=== PATIENT | female | born 1985 | race Caucasian/White ===

== ENCOUNTER 2021-09-17 16:59 | Emergency (ER) | payer OTHER, SELFPAY ==
--- NOTE | 2021-09-17 16:54 | ECG_ITS ---
APPROVED REPORT Exam: Resting ECG HR:72 bpm ECG Measurements Heart Rate 72 AXES ID 180 P 23 QRSd 97 QRS 72 QT 398 T 78 QTc 422 Conclusion SINUS RHYTHM WITH OCCASIONAL VENTRICULAR PREMATURE COMPLEXES BORDERLINE ECG UNCONFIRMED REPORT Electronically signed by : Sterling Heck MD 09/18/2021 15:36:29
[2021-09-17 16:57] VITALS: BP 125/67; PULSE 68; RESP 16; TEMP 36.6; O2SAT 100; BMI 28.3
--- NOTE | 2021-09-17 17:19 | HMH.EDGENADL ---
ED Disposition Clinical Impression: Accidental overdose Qualifiers: Encounter type: initial encounter Qualified Code(s): T50.901A - Poisoning by unspecified drugs, medicaments and biological substances, accidental (unintentional), initial encounter Disposition: Home, Self-Care Condition on Discharge: Good Instructions: DI for Drug Overdose in Adults Time of Disposition: 18:11 - Critical Care Critical Care Time: No Attestation: On , the high probability of a clinically significant, sudden or life threatening deterioration of the following system(s) required my full and direct attention, intervention and personal management. The time I documented below is in addition to time spent performing reported procedures but includes the following listed in this critical care notation. Medical Decision Making - Medical Records Medical records reviewed: Yes: I reviewed the patient's medical records. - Luis Eduardo Inquiry Pt receiving controlled substance: No Vital Signs: 09/17/21 16:57 Temperature 97.8 F Temperature Source Oral Pulse Rate [Right Radial] 68 Respiratory Rate 16 Blood Pressure [Right Arm] 125/67 Blood Pressure Mean [Right Arm] 86 Blood Pressure Source [Right Arm] Automatic Cuff Blood Pressure Position [Right Arm] Sitting 02 Sat by Pulse Oximetry 100 Oxygen Delivery Method Room Air - Lab Data Lab results reviewed: Yes: I reviewed the patient's lab results. Lab Results 09/17/21 17:10: WBC 11.4 H, RBC 4.43, Hgb 14.6, Hct 43.9, MCV 98.9, MCH 32.9 H, MCHC 33.3, RDW 13.8, Plt Count 402, MPV 7.4, Neut % (Auto) 64.3, Lymph % (Auto) 25.1, [place] % (Auto) 6.0, Eos % (Auto) 2.8, Baso % (Auto) 1.8, Neut # (Auto) 7.4, Lymph # (Auto) 2.9, [place] # (Auto) 0.7, Eos # (Auto) 0.3, Baso # (Auto) 0.2 09/17/21 17:10: Sodium 141, Potassium 4.3, Chloride 105, Carbon Dioxide 29, Anion Gap 11.3, BUN 12, Creatinine 0.60, Estimated Creat Clear 153, Estimated GFR 113, Est GFR ( Amer) 137, Glucose 113 H, Calcium 9.2, Total Bilirubin 0.5, AST 31, ALT 15, Alkaline Phosphatase 86, Total Protein 8.2, Albumin 4.7, Globulin 3.5 H, Albumin/Globulin Ratio 1.3, Salicylates < 1.0 L, Acetaminophen < 10 L 09/17/21 17:10: Serum HCG, Qual Negative 09/17/21 17:10: Urine Opiates Screen Negative, Urine Methadone Screen Negative, Ur Barbituates Screen Negative, Ur Phencyclidine Scrn Negative, Ur Amphetamines Screen Negative, U Benzodiazepines Scrn Negative, Urine Cocaine Screen Positive H, U Marijuana (THC) Screen Positive H 09/17/21 17:10: Plasma/Serum Alcohol < 10 Result diagrams: 09/17/21 17:10 09/17/21 17:10 Orders (Tests/Meds): ORDERS Category Date Time Status Urinalysis and Microscopic Stat Lab 09/17/21 17:10 Received - ECG Data Tracing #1 I reviewed this ECG and interpreted as documented below: NSR @ 72 normal axis RI 180 QRS 97 QTc 422 baseline artifact limits interpretation, but no apparent significant ST/T wave changes General Adult HPI - General Stated complaint: OD Time Seen by Provider: 09/17/21 18:10 Mode of Arrival: EMS Source of Information: Patient Limitations: No Limitations - History of Present Illness HPI narrative: 36 yo/F, BIBEMS, found unresponsive at home, denies opiate use, but aroused with narcan by EMS. She does state she did a little cocaine today. Per her report, she felt dizzy and next thing she knew, there were box hinge and lock attacher and ROSI standing over her. Currently awake, alert, oriented, denies any acute complaints. No N/V, CP, SOB or other symptoms at this time. - Related Data Allergies Allergy/AdvReac Type Severity Reaction Status Date / Time peanut Allergy Verified 09/17/21 17:24 [facility] History - Hepatitis A Screen Attestation statement:: This patient has been screened for Hepatitis A risk factors. ROS Obtained: Yes All systems reviewed & no additional complaints - Constitutional Constitutional: Reports system reviewed and no additional complaints, except as docu - Eyes
[2021-09-17 17:29] LABS: Microscopic, Urine URINE MICROSCOPIC (MICROSCOPIC)
[2021-09-17 17:35] LABS: Basophils # 0.2 K/mm3 (0-0.2); Basophils % 1.8 % (0.1-2.0); Eosinophils # 0.3 K/mm3 (0.0-0.4); Eosinophils % 2.8 % (0.1-12.0); Hematocrit 43.9 % (37.0-47.0); Hemoglobin 14.6 g/dL (12.2-16.2); Lymphocytes # 2.9 K/mm3 (0.7-4.5); Lymphocytes % 25.1 % (10-50); Mean Corpuscular HGB Conc 33.3 g/dL (31.8-35.4); Mean Corpuscular Hemoglobin 32.9 pg (27.0-31.2); Mean Corpuscular Volume 98.9 fl (81-99); Mean Platelet Volume 7.4 fl (7.4-10.4); Monocytes # 0.7 K/mm3 (0.1-1.0); Neutrophils # 7.4 K/mm3 (1.8-7.8); Neutrophils % 64.3 % (37.0-80.0); Platelet Count 402 K/mm3 (142-424); Red Blood Count 4.43 M/mm3 (4.20-5.40); Red Cell Distribution Width 13.8 % (11.5-17.5); White Blood Count 11.4 K/mm3 (4.8-10.8)
[2021-09-17 17:36] LABS: Chloride 105 mmol/L (98-107)
[2021-09-17 17:37] LABS: Appearance,Urine CLEAR (Clear); Bilirubin,Urine Negative (Negative); Blood, Urine Negative (Negative); Color,Urine YELLOW (Yellow); Glucose,Urine (UA) Negative (Negative); Ketones,Urine Negative (Negative); Leukocyte Esterase,Urine Negative (Negative); Nitrate,Urine Negative (Negative); Potassium 4.3 mmoL/L (3.5-5.1); Protein,Urine Negative (Negative); Sodium 141 mmol/L (136-145); Specific Gravity, Urine 1.015 (1.005-1.030); Urobilinogen,Urine 0.2 EU/dl (0.2)
[2021-09-17 17:39] LABS: Alanine Aminotransferase 15 U/L (12-78); Anion Gap 11.3 mEq/L (5-15); Aspartate Amino Transferase 31 U/L (14-36); Blood Urea Nitrogen 12 mg/dl (7-17); Carbon Dioxide 29 mmol/L (22.0-30.0); Creatinine Clearance Estimated 153 mL/min (50-200); Estimated Glomerular Filt Rate 113 ml/min (>60); GFR (African American) 137 ML/MIN (>60)
[2021-09-17 17:40] LABS: Acetaminophen < 10 ug/ml (10-30); Albumin Level 4.7 g/dl (3.5-5.0); Albumin/Globulin Ratio 1.3 (1.1-1.8); Alkaline Phosphatase 86 U/L (38-126); Bilirubin,Total 0.5 mg/dl (0.2-1.3); Calcium 9.2 mg/dl (8.4-10.2); Ethyl Alcohol < 10 mg/dl (0-10); Globulin 3.5 g/dL (1.3-3.2); Glucose 113 mg/dl (74-100); Salicylate < 1.0 mg/dL (2.0-20.0); Total Protein,Serum 8.2 g/dl (6.3-8.2)
[2021-09-17 17:48] LABS: Amphetamine/Metha Screen,Urine Negative ng/ml (<1000); Barbiturates Screen,Urine Negative ng/ml (<200)
[2021-09-17 17:49] LABS: Benzodiazepines Screen,Urine Negative ng/ml (<200); Cannabinoid Screen,Urine Positive ng/ml (<50)
[2021-09-17 17:50] LABS: Cocaine Screen,Urine Positive ng/ml (<300); HCG Qualitative, Serum Negative (Negative)
[2021-09-17 17:51] LABS: Methadone Screen,Urine Negative ng/ml (<300); Opiate Screen,Urine Negative ng/ml (<300)
[2021-09-17 17:52] LABS: Phencyclidine Screen,Urine Negative ng/ml (<25)
[2021-09-17 18:13] LABS: RBC,Urine Occasional #/hpf (0-3); Squamous Epithelial Cell,Urine Occasional #/hpf (0-5)
[2021-09-17 18:35] VITALS: BP 108/63; PULSE 78; RESP 20; TEMP 36.8; O2SAT 100
== END 2021-09-17 18:35 | disposition home or self-care (01) ==
PROVIDERS: Emergency Provider Emergency Medicine
DX: T50.901A Poisoning by unspecified drugs, medicaments and biological substances, accidental (unintentional), initial encounter (principal); R42 Dizziness and giddiness; Z91.010 Allergy to peanuts
CPT/HCPCS: 80053; 80305; 80329; 81001; 84703; 85025; 93005; 99284

== ENCOUNTER 2023-02-16 19:40 | Inpatient (IN) | payer OTHER, SELFPAY ==
[2023-02-16 20:42] VITALS: BMI 32.4
[2023-02-16 21:17] LABS: Opiate Screen,Urine Negative ng/ml (<300)
[2023-02-16 21:18] LABS: Phencyclidine Screen,Urine Negative ng/ml (<25)
[2023-02-16 21:19] LABS: Amphetamine/Metha Screen,Urine Negative ng/ml (<1000)
[2023-02-16 21:20] LABS: Barbiturates Screen,Urine Negative ng/ml (<200); Benzodiazepines Screen,Urine Negative ng/ml (<200)
[2023-02-16 21:21] LABS: Cannabinoid Screen,Urine Negative ng/ml (<50); Methadone Screen,Urine Negative ng/ml (<300)
[2023-02-16 21:22] LABS: Cocaine Screen,Urine Negative ng/ml (<300)
[2023-02-16 21:30] LABS: Basophils % 0.3 % (0.1-2.0); Eosinophils % 0.3 % (0.1-12.0); Hematocrit 35.1 % (37.0-47.0); Hemoglobin 12.1 g/dL (12.2-16.2); Lymphocytes # 1.6 K/mm3 (0.7-4.5); Mean Corpuscular HGB Conc 34.5 g/dL (31.8-35.4); Mean Corpuscular Hemoglobin 33.5 pg (27.0-31.2); Mean Corpuscular Volume 97.1 fl (81-99); Mean Platelet Volume 9.7 fl (7.4-10.4); Monocytes # 0.6 K/mm3 (0.1-1.0); Monocytes % 4.6 % (1.7-9.3); Neutrophils # 9.8 K/mm3 (1.8-7.8); Neutrophils % 81.8 % (37.0-80.0); Platelet Count 272 K/mm3 (142-424); Red Blood Count 3.62 M/mm3 (4.20-5.40); Red Cell Distribution Width 12.9 % (11.5-17.5)
--- NOTE | 2023-02-16 21:45 | EXP.OB.APHP ---
OB - H&P: HPI Antepartum History of Present Illness Chief complaint: Painful uterine contractions History of present illness: Ms Luciana Childs is a 37 yo who presented to [facility] Labor and Delivery by squad. She initially stated that she did not know that she was . She reports painful menstrual like cramps that started at 1100 this morning. She reports heavy bleeding with passage of clots. She states throughout the day pain progressed and she called 911. When she presented to labor and delivery she was complete with a bulging bag. Spontaneous rupture of membranes occurred and baby was noted to have a face presentation. Thin meconium was noted. After delivery of baby, Luciana admitted that she found out she was in January. She states periods have always been irregular, sometimes having two periods in one month. However, she believes her last period was May. She states she lives here alone. She does not have anyone. She does not know who FOB is. She admits to history of IV drug use years ago ... heroin and methamphetamine. She admits to mental health and takes multiple prescription medications. She states she stopped Abilify in January when she found out she was . She did not seek any care. She admits to taking Lamictal, Sumatriptin, Strattera and Clonidine daily and throughout . She also admits to marijuana use daily. She admits she last used cocaine and alcohol a few months ago. Presciption bottles are from [place] mid level prescriber [place]. After delivery she stated she cannot care for the baby and does not want the baby. History of Present care: none Ultrasounds: none Labs Blood type: unknown Rubella: unknown RPR/VDRL: unknown GBS status: unknown HBsAG: unknown [facility] Disclaimer: The information contained in this section may have been updated after the patient was seen, as this information can be updated by other users. Medical History (Updated 02/16/23 @ 21:59 by Anju Fuentes DO) Active labor ADHD History of drug abuse History of intravenous drug abuse No care in current with fetus of unknown gestational age Social History Smoking Status: Current every day smoker alcohol intake: current current occupational status: unemployed Travel in the last 8 weeks: None Review of Systems Review of Systems Review of systems:: pertinent systems reviewed and negative unless documented below *Gastrointestinal Gastrointestinal: Reports abdominal pain *Genitourinary Genitourinary: Reports abnormal menses and Reports abnormal vaginal bleeding Meds Home Medications and Allergies New Prescriptions to Start Prescriptions: Allergies Allergy/AdvReac Type Severity Reaction Status Date / Time peanut Allergy Verified 09/17/21 17:24 OB - H&P: Exam Constitutional moderate distress and disheveled Routine HEENT Exam Head: Present normocephalic and atraumatic Eye: Absent conjunctivae pink ENT: Present mucous membranes moist Routine Respiratory Exam Present CTA bilaterally and normal respiratory effort Routine Cardiovascular Exam Present RRR Routine Abdominal Exam Present soft (Gravid) Routine Rectal Exam Digital: Present hemorrhoid Routine Exam External: Present normal urethra appearance; Absent erythema, tenderness, lesions, lacerations or vulvar erythema Routine Extremities Exam Present full ROM; Absent edema or calf tenderness Routine Neurological Exam Present alert, oriented X3 and moving all extremities Routine Psychiatric Exam Present anxious; Absent normal affect OB - Results Labs Labs: Short CBC 02/16/23 Range/Units 21:00 WBC 12.0 H (4.8-10.8) K/mm3 Hgb 12.1 L (12.2-16.2) g/dL Hct 35.1 L (37.0-47.0) % Plt Count 272 (142-424) K/mm3 OB - A/P Antepartum (1) with fetus of unknown gestational age:
[2023-02-16 21:59] LABS: Microscopic, Urine URINE MICROSCOPIC (MICROSCOPIC)
--- NOTE | 2023-02-16 22:01 | EXP.DN ---
Delivery Note Delivery Date:: 02/16/23 Delivery Time:: 19:58 Anesthesia Type: Local Was labor medically induced?: No Infant delivered prior to 39 weeks?: No Gender: Female at 1 minute: 7 at 5 minutes: 7 LAC or MLE?: MLE Delivery Procedure:: Mom complete without epidural. Mom was anxious, screaming and climbing up the bed with contractions. Difficult to obtain heart tones. Baby was noted to be in face presentation. Perineum was injected with 10 cc of Xylocaine. After multiple attempts to get patient to cooperate and push, midline episiotomy was performed to allow room for head to delivery. Head delivered spontaneously over MLE in direc OP position with face presentation. Nuchal cord x 1 delivered through. Anterior shoulder delivered with gentle downward pressure. Posterior shoulder and remainder of body delivered spontaneously. Baby's mouth and nares bulb suctioned, warmed/dried and stimulated. Cord was clamped and cut.Cord blood was obtained. Placenta delivered spontaneously and intact. Placenta will be sent to pathology for review. Midline episiotomy was repaired with 3-0 Vicryl. Hemostasis was noted. Mom was doing okay after delivery. Baby was at the warmer and then taken out of room per maternal request. Luciana stated she cannot care for a baby and did not want her baby. Live female baby weighing 6 lb 9 oz APGARs 7 (1 min), 7 (5 min), 7 (10 min) EBL 300 mL Placental Delivery Description: Spontaneous
[2023-02-16 22:03] LABS: Appearance,Urine CLEAR (Clear); Bilirubin,Urine Negative (Negative); Blood, Urine 1+ (Negative); Color,Urine YELLOW (Yellow); Glucose,Urine (UA) Negative (Negative); Ketones,Urine 1+ (Negative); Leukocyte Esterase,Urine TRACE (Negative); Nitrate,Urine Negative (Negative); Protein,Urine Negative (Negative)
[2023-02-16 22:08] VITALS: BP 126/62; PULSE 78; RESP 22; TEMP 36.3; O2SAT 100; BMI 32.5
[2023-02-16 22:20] LABS: Bacteria,Urine Trace /lpf; WBC,Urine Occasional #/hpf (0-3)
[2023-02-17 06:45] LABS: Hemoglobin 11.2 g/dL (12.2-16.2)
--- NOTE | 2023-02-17 07:41 | SW/DCPLANNER ---
Addendum entered by Izabella Bryson 02/28/23 08:53: Infant cord screen is NEGATIVE. Addendum entered by Izabella Bryson 02/17/23 15:00: I have arranged [employer] for this patient. Original Note: I received a consult on this patient regarding: would like to give baby up and no care. Per H&P patient admits to IV drug use years ago: heroin and meth. Patient admits to using cocaine and alcohol a few months ago. Patient also admits to mental health issues w/ multiple prescriptions. Patient did not have any care: did not find out she was till January. Patient openly admits she can not care for child and does not want child in her hospital room. Patient also did not want to name infant. Patient and urine drug screens are negative. I have reported this case to Central Intake (web ID# [id number]). I will follow up w/ ID # and OB staff.
--- NOTE | 2023-02-17 07:55 | HMH.PHAINT1 ---
Pharmacy Intervention Comments: MEDICATION RECONCILIATION COMPLETED ON PATIENT USING EXTERNAL FILL HISTORY FROM PHARMACY. -RADHA EMMANUEL, BLASD
--- NOTE | 2023-02-17 10:42 | EXP.DC.SUM ---
General Admission date:: 02/16/23 Discharge date: 02/17/23 HPI HPI HPI: PPD # 1 s/p Resting comfortably in bed. Appropriate lochia. Pain controlled. Voiding without difficulty and passing flatus. Tolerating regular diet. No fever/chills, chest pain or shortness of breath. No headaches, vision changes, lightheadedness/dizziness. Ambulating well ad hilary. She has decided to give baby up. She states she cannot care for a baby. Hospital Course Hospital Course Hospital Course: Ms Luciana Childs is a 37 yo who presented to [facility] Labor and Delivery by squad. She initially stated that she did not know that she was . She reports painful menstrual like cramps that started at 1100 this morning. She reports heavy bleeding with passage of clots. She states throughout the day pain progressed and she called 911. When she presented to labor and delivery she was complete with a bulging bag. Spontaneous rupture of membranes occurred and baby was noted to have a face presentation. Thin meconium was noted. After delivery of baby, Luciana admitted that she found out she was in January. She states periods have always been irregular, sometimes having two periods in one month. However, she believes her last period was May. She states she lives here alone. She does not have anyone. She does not know who FOB is. She admits to history of IV drug use years ago ... heroin and methamphetamine. She admits to mental health and takes multiple prescription medications. She states she stopped Abilify in January when she found out she was . She did not seek any care. She admits to taking Lamictal, Sumatriptin, Strattera and Clonidine daily and throughout . She also admits to marijuana use daily. She admits she last used cocaine and alcohol a few months ago. Presciption bottles are from a mid level prescriber [place]. She had a spontaneous vaginal delivery on 02/16/23 at 1958. She delivered a live female baby, AGPARs 7 (1 min), 7 (5 min), 7 (10 min). EBL 300 mL After delivery she stated she cannot care for the baby and does not want the baby. She did well . Appropriate lochia. Pain controlled. Voiding without difficulty and passing flatus. Tolerating regular diet. No fever/chills, chest pain or shortness of breath. No headaches, vision changes, lightheadedness/dizziness. Ambulating well ad hilary. instructional services librarian and behavioral health was consulted. She was discharged home PPD # 1 with instructions to follow-up in the office in 2 weeks. Exam Data for Last 24 hours Vital signs and Labs for Last 24 Hours: Temp Pulse Resp BP Pulse Ox O2 Del Method 97.4 F L 78 22 126/62 100 Room Air 02/16/23 22:08 02/16/23 22:08 02/16/23 22:08 02/16/23 22:08 02/16/23 22:08 02/16/23 22:08 Laboratory Results - last 24 hr 02/16/23 20:30: Urine Color Yellow, Urine Appearance Clear, Urine pH 7.0, Ur Specific F[place] 1.010, Urine Protein Negative, Urine Glucose (UA) Negative, Urine Ketones 1+, Urine Blood 1+, Urine Nitrate Negative, Urine Bilirubin Negative, Urine Urobilinogen 1.0, Ur Leukocyte Esterase Trace, Urine RBC 10-20, Urine WBC Occasional, Ur Squamous Epith Cells 3-5, Urine Bacteria Trace, Urine Opiates Screen Negative, Urine Methadone Screen Negative, Ur Barbituates Screen Negative, Ur Phencyclidine Scrn Negative, Ur Amphetamines Screen Negative, U Benzodiazepines Scrn Negative, Urine Cocaine Screen Negative, U Marijuana (THC) Screen Negative 02/16/23 21:00: WBC 12.0 H, RBC 3.62 L, Hgb 12.1 L, Hct 35.1 L, MCV 97.1, MCH 33.5 H, MCHC 34.5, RDW 12.9, Plt Count 272, MPV 9.7, Neut % (Auto) 81.8 H, Lymph % (Auto) 13.0, [place] % (Auto) 4.6, Eos % (Auto) 0.3, Baso % (Auto) 0.3, Neut # (Auto) 9.8 H, Lymph # (Auto) 1.6, [place] # (Auto) 0.6, Eos # (Auto) 0.0, Baso # (Auto) 0.0, Blood Type O Positive, Antibody Screen Negative 02/17/23 06:25: Hgb 11.2 L, Hct 31.0 L I & O for Last 24 hours: Intake & Output 02/14/23 1
[2023-02-18 08:28] LABS: Hepatitis B Surface Antigen Negative (Negative)
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
[2023-02-18 12:19] LABS: HIV Screen 4th Generation wRfx Non Reactive (Non Reactive); Rapid Plasma Reagin Ab Titer Non Reactive titer (NonRea<1:1)
--- NOTE | 2023-02-22 12:24 | PC.NURSE ---
EMS called ER to have facesheet sent to the EMS station for their run record. Fax sent successfully.
== END 2023-02-17 15:30 | disposition home or self-care (01) | DRG 807 ==
PROVIDERS: Admitting Provider Obstetrics & Gynecology; Visit Provider Obstetrics & Gynecology
DX: O99.324 Drug use complicating childbirth (principal); Z37.0 Single live birth; F14.90 Cocaine use, unspecified, uncomplicated; F12.90 Cannabis use, unspecified, uncomplicated; O69.81X0 Labor and delivery complicated by cord around neck, without compression, not applicable or unspecified; O77.0 Labor and delivery complicated by meconium in amniotic fluid; Z3A.39 39 weeks gestation of pregnancy; O99.334 Smoking (tobacco) complicating childbirth; O32.3XX0 Maternal care for face, brow and chin presentation, not applicable or unspecified; F17.210 Nicotine dependence, cigarettes, uncomplicated; O99.344 Other mental disorders complicating childbirth; F32.9 Major depressive disorder, single episode, unspecified; F90.9 Attention-deficit hyperactivity disorder, unspecified type
CPT/HCPCS: 59409; 36415; 80305; 81001; 85014; 85018; 85025; 86593; 86762; 86850; 87340; 88307; 94761; G0283

== ENCOUNTER → 2023-02-23 15:53 | Outpatient (CLI) | payer OTHER, SELFPAY ==
[2023-02-23 16:07] LABS: Basophils # 0.1 K/mm3 (0-0.2); Basophils % 0.6 % (0.1-2.0); Eosinophils # 0.2 K/mm3 (0.0-0.4); Eosinophils % 1.3 % (0.1-12.0); Hematocrit 37.3 % (37.0-47.0); Hemoglobin 12.1 g/dL (12.2-16.2); Lymphocytes # 2.3 K/mm3 (0.7-4.5); Mean Corpuscular HGB Conc 32.5 g/dL (31.8-35.4); Mean Corpuscular Hemoglobin 32.3 pg (27.0-31.2); Mean Corpuscular Volume 99.3 fl (81-99); Mean Platelet Volume 7.9 fl (7.4-10.4); Monocytes # 0.5 K/mm3 (0.1-1.0); Monocytes % 4.5 % (1.7-9.3); Neutrophils # 8.4 K/mm3 (1.8-7.8); Neutrophils % 73.6 % (37.0-80.0); Platelet Count 656 K/mm3 (142-424); Red Blood Count 3.75 M/mm3 (4.20-5.40); Red Cell Distribution Width 13.3 % (11.5-17.5); White Blood Count 11.4 K/mm3 (4.8-10.8)
[2023-02-23 17:13] LABS: Alanine Aminotransferase 42 U/L (12-78); Albumin Level 4.1 g/dl (3.5-5.0); Albumin/Globulin Ratio 1.1 (1.1-1.8); Alkaline Phosphatase 378 U/L (38-126); Anion Gap 14.7 mEq/L (5-15); Aspartate Amino Transferase 41 U/L (14-36); Bilirubin,Total 0.2 mg/dl (0.2-1.3); Blood Urea Nitrogen 13 mg/dl (7-17); Calcium 9.1 mg/dl (8.4-10.2); Carbon Dioxide 24 mmol/L (22.0-30.0); Chloride 101 mmol/L (98-107); Chol/HDL Ratio 4.1 (1-3.5); Cholesterol 283 mg/dl (140-200); Estimated Glomerular Filt Rate 94 ml/min (>60); GFR (African American) 114 ML/MIN (>60); Globulin 3.8 g/dL (1.3-3.2); Glucose 83 mg/dl (74-100); HDL Cholesterol 69 mg/dl (40-60); Potassium 4.7 mmoL/L (3.5-5.1); Sodium 135 mmol/L (136-145); Total Protein,Serum 7.9 g/dl (6.3-8.2); Triglycerides 178 mg/dl (30-150); VLDL Cholesterol 36 mg/dL (0-40)
[2023-02-23 17:24] LABS: Direct LDL Cholesterol 137.33 mg/dL (100-129)
[2023-02-23 17:29] LABS: Free T4 (Free Thyroxine) 1.13 ng/dl (0.78-2.19)
[2023-02-23 17:32] LABS: 25-OH Vitamin D, Total 22.2 ng/mL (30-100)
[2023-02-23 17:43] LABS: Thyroid Stimulating Hormone 2.29 uIU/mL (0.465-4.68)
[2023-02-26 09:15] LABS: HIV Screen 4th Generation wRfx Non Reactive (Non Reactive)
[2023-03-01 12:18] LABS: HCV Ab Reactive (Non Reactive)
[2023-03-02 20:57] LABS: Antinuclear Antibodies (ANA) Negative
== END ==
PROVIDERS: PCP Internal Medicine; Visit Provider Internal Medicine
DX: Z00.00 Encounter for general adult medical examination without abnormal findings (principal); Z13.1 Encounter for screening for diabetes mellitus; Z13.220 Encounter for screening for lipoid disorders; Z13.29 Encounter for screening for other suspected endocrine disorder; Z11.59 Encounter for screening for other viral diseases; Z11.4 Encounter for screening for human immunodeficiency virus [HIV]; Z13.21 Encounter for screening for nutritional disorder; Z91.89 Other specified personal risk factors, not elsewhere classified; D89.89 Other specified disorders involving the immune mechanism, not elsewhere classified; E55.9 Vitamin D deficiency, unspecified; Z68.28 Body mass index [BMI] 28.0-28.9, adult
CPT/HCPCS: 80053; 80061; 82306; 83036; 84439; 84443; 85025; 86038; 86225; 86235; 86703; G0432

== ENCOUNTER → 2023-03-23 13:45 | Outpatient (POV) | payer OTHER, SELFPAY ==
--- NOTE | 2023-03-23 14:03 | EXP.PAIN.OV ---
HPI Data of Consult Patient: new to practice Consult date: 03/23/23 Requesting Physician: Denia Calvin APRN Primary Care Provider: Juanito Nix DO Consult Narrative History of present illness: Ms. Childs is a 37 year old female who presents today as a new patient. She is a referral from Juanito Nix's office. Today she rates her pain a 9 out of 10. Patient states she has pain throughout her low back and bilateral hips. Patient does describe this as an aching, throbbing sensation with numbness. She states the pain is worse with increased activity or ambulation. She states she also cannot tolerate prolonged positioning such as sitting and stairs aggravate her pain symptoms. Patient states this has been going on for years and progressively worsened over time. Patient does state that she has a history of sports injuries when she was back in high school. Patient does state the pain interferes with her ability perform activities of daily living such as cooking and cleaning. Patient has tried and failed conservative therapy such as oral medications, heat and ice and topicals with minimal relief. Patient denies any recent physical therapy or chiropractor however she does do home exercising and stretching on a regular basis. Patient states she frequently walks a lot and uses her service dog. Patient denies any recent imaging. Patient does states she has a history of SI issues. Patient denies any previous back surgery or injection history. Patient has been prescribed gabapentin 100 mg 3 times a day in the past. Patient does have a history of drug abuse in the past. Her Luis Eduardo has been reviewed. CC: Denia Calvin APRN [facility] Disclaimer: The information contained in this section may have been updated after the patient was seen, as this information can be updated by other users. Medical History (Updated 03/23/23 @ 14:20 by Denia Calvin APRN) Active labor ADHD Hemorrhoids History of drug abuse History of intravenous drug abuse Major depressive disorder No care in current with fetus of unknown gestational age Surgical History Hx of appendectomy Hx of knee surgery Family History Other Cancer Diabetes Hypertension Stroke Substance abuse Social History Smoking Status: Current every day smoker tobacco type: cigarettes alcohol intake: current substance use type: former substance user, marijuana, crack/cocaine, heroin, amphetamines, IV drugs and methamphetamine current occupational status: unemployed Travel in the last 8 weeks: None do you feel safe at home: Yes victim of physical abuse: No victim of emotional abuse: No victim of sexual abuse: No Review of Systems Review of Systems Review of systems:: pertinent systems reviewed and negative unless documented below Review of systems (narrative): Review of Systems: General: No recent weight changes, no fever, no sleep disturbances Respiratory: No cough, no shortness of air, no recurring pulmonary infections Cardiovascular/peripheral vascular: No chest pain, no palpitations, no edema, no shortness of breath Gastrointestinal: No new onset incontinence, normal bowel movements reported Genitourinary: No new onset incontinence Musculoskeletal: [Low back pain, bilateral hip pain Psychiatric: [Normal mood/affect] Neurological: [Denies weakness in extremities], [denies balance issues] Meds Home Medications and Allergies Home Medications Medication Instructions Recorded Confirmed Type albuterol sulfate 90 mcg/actuation 2 puff inhalation Q6HP PRN 02/17/23 03/03/23 History aerosol inhaler Shortness Of Breath fluticasone propionate 50 1 spray intranasal DAILY Allergy 02/17/23 03/03/23 History mcg/actuation nasal Symptoms spray,suspension ibuprofen 400
[2023-03-23 14:44] VITALS: BP 127/69; PULSE 101; RESP 20; O2SAT 97; BMI 26.6
== END ==
PROVIDERS: PCP Internal Medicine; Visit Provider Nurse Practitioner Family
DX: M46.1 Sacroiliitis, not elsewhere classified (principal); M54.41 Lumbago with sciatica, right side; M54.42 Lumbago with sciatica, left side; G89.29 Other chronic pain; M25.551 Pain in right hip; M25.552 Pain in left hip
CPT/HCPCS: 99202; G0463

== ENCOUNTER → 2023-03-23 14:19 | Outpatient (CLI) | payer OTHER, SELFPAY ==
--- NOTE | 2023-03-23 14:25 | XR_ITS ---
FINAL REPORT CLINICAL HISTORY: LBP W/BLE PAIN COMPARISON: None FINDINGS: SACROILIAC JOINTS SERIES Three views were obtained. There is no acute fracture or dislocation. The joint spaces appear normal. The visualized bony structures are well aligned. No soft tissue abnormality is seen. IMPRESSION: No acute bony abnormality. Reviewed, Interpreted and Dictated by Benson Dean MD Transcribed by Krys De La Cruz Authenticated and . [facility]
--- NOTE | 2023-03-23 14:25 | XR_ITS ---
FINAL REPORT CLINICAL HISTORY: LBP W/BLE PAIN FINDINGS: LUMBAR SPINE Five views demonstrate no acute fracture. The disc spaces are well preserved. Scoliosis measures about 15 degrees convex to the left. There is mild facet sclerosis. There is no malalignment. IMPRESSION: No acute process. Reviewed, Interpreted and Dictated by Benson Dean MD Transcribed by Jess Miranda Authenticated and [facility]
== END ==
PROVIDERS: PCP Internal Medicine; Visit Provider Nurse Practitioner Family
DX: M54.50 Low back pain, unspecified (principal); M79.661 Pain in right lower leg; M79.662 Pain in left lower leg
CPT/HCPCS: 72110; 72202

== ENCOUNTER 2023-05-03 09:19 | Day surgery (SDC) | payer OTHER, SELFPAY ==
[2023-05-03 09:36] VITALS: BP 137/73; PULSE 69; RESP 18; TEMP 36.5; O2SAT 99; BMI 27.4
[2023-05-03 09:49] VITALS: BP 123/75; PULSE 64; RESP 18; O2SAT 99
--- NOTE | 2023-05-03 09:50 | P.PCN_ITS ---
Procedure Date: 05/03/23 Time: 09:40 Anesthesiologist:: Mason Calderon CRNA Complications:: None Pre-procedure Diagnosis:: Bilateral sacroiliitis. Post-procedure Diagnosis:: Same. Indications for Procedure:: Patient is a very pleasant 37-year-old female comes our clinic today for bilateral sacroiliac joint injection. She reports difficulty transitioning from sitting to standing. She reports constant posterior hip pain bilaterally. Constant low lumbar back pain off the midline bilaterally. She rates her pain 7/10. Procedure Details:: Procedure: Bilateral sacroiliac joint injections under fluoroscopy Informed consent was obtained and the risks and benefits of the procedure were explained to the patient.~ The patient was taken to the procedure room and noninvasive monitors were placed including a noninvasive blood pressure cuff and pulse oximeter.~ The patient was placed prone on the procedure table. Both hips were cleansed using Betadine as a cleansing solution. C-arm fluoroscopy was used to view the right sacroiliac joint.~ The skin and subcutaneous tissues were anesthetized using lidocaine 1.5% and a 25-gauge needle.~ After this, a 22-gauge spinal needle was inserted under fluoroscopic guidance into the inferior aspect of the right sacroiliac joint.~ Omnipaque dye was injected and good spread was seen throughout the joint.~ After this, approximately 5 mL of bupivacaine, 0.25% and Depo-Medrol, 40 mg was incrementally injected into the right sacroiliac joint. We then moved to the left sacroiliac joint.~ The skin and subcutaneous tissues were anesthetized using lidocaine 1.5% and a 25-gauge needle.~ After this, a 22- gauge spinal needle was inserted under fluoroscopic guidance into the inferior aspect of the left sacroiliac joint.~ Omnipaque dye was injected and good spread was seen throughout the joint. After this, approximately 5 mL of bupivacaine, 0.25% and Depo-Medrol, 40 mg was incrementally injected into the left sacroiliac joint.~ The patient tolerated the procedure well with no complications. The patient was observed in the Pain Clinic and then was discharged home neurologically intact. Plan and Disposition:: Patient was discharged out incident.
[2023-05-03 09:55] VITALS: BP 114/52; PULSE 62; RESP 18; O2SAT 96
[2023-05-03] MEDS: methylPREDNISolone ACETATE 80MG/ML VIAL 80 MG (09:55)
[2023-05-03] MEDS: LIDOCAINE 1% 5ML PF VIAL 5 ML (09:55)
[2023-05-03] MEDS: BUPIVACAINE 0.25% 10ML INJ 25 MG IJ (09:55)
[2023-05-03 10:02] VITALS: BP 114/52; PULSE 62; RESP 18; O2SAT 96
== END 2023-05-03 09:49 | disposition home or self-care (01) ==
PROVIDERS: PCP Internal Medicine; Visit Provider Nurse Anesthetist, Certified Registered
DX: M46.1 Sacroiliitis, not elsewhere classified (principal)
CPT/HCPCS: 27096; G0260; J1040

== ENCOUNTER → 2023-05-20 10:58 | Outpatient (POV) | payer OTHER, SELFPAY ==
[2023-05-20 11:50] VITALS: BP 134/74; PULSE 84; RESP 20; O2SAT 95; BMI 28.3
--- NOTE | 2023-05-20 12:16 | EXP.PAIN.SOA ---
[facility] Pain Management SOAP Note Subjective:: Patient is a pleasant 37-year-old female who presents today for follow-up of bilateral SI injections on 05/03/2023. We are currently treating the patient for bilateral sacroiliitis, low back pain. Today she rates her pain a 7 out of 10. Patient does state that she did have approximately 50% relief following these injections however it only lasted 3 to 4 days and then she experienced worsening pain. Patient does state today that she continues to have the same pain however she is having more knee pain and going down into her legs primarily on the left side. Patient describes this as an aching, throbbing sensation with numbness into the extremity. He does state that the pain is interfering with her ability perform activities of daily living such as cooking and cleaning. Patient has tried [id number] Tylenol and ibuprofen along with heat and ice and topicals with no additional relief. Her Luis Eduardo has been reviewed and is appropriate. Review of Systems: General: No recent weight changes, no fever, no sleep disturbances Respiratory: No cough, no shortness of air, no recurring pulmonary infections Cardiovascular/peripheral vascular: No chest pain, no palpitations, no edema, no shortness of breath Gastrointestinal: No new onset incontinence, normal bowel movements reported Genitourinary: No new onset incontinence Musculoskeletal: Low back pain Psychiatric: [Normal mood/affect] Neurological: [Denies weakness in extremities], [denies balance issues] Objective:: Physical Exam: General: Alert and oriented x3, no acute distress, pleasant and cooperative Lungs: Respirations even and unlabored, symmetrical chest expansion Eyes: PERRL Musculoskeletal: Flexion and extension of lumbar [spine] somewhat guarded secondary to pain, [antalgic gait noted] Neurological: Speech clear, no gross sensory deficit Assessment:: Low back pain, bilateral sacroiliitis, left leg pain, knee pain Plan:: Patient is experiencing worsening pain in her low back with radiating symptoms down into her left leg. I have discussed with the patient that I will order MRI imaging without contrast of her lumbar spine. I will also order the patient physical therapy for evaluation and treatment of her low back and leg symptoms. Patient will return to clinic in 1 month for reevaluation of symptoms and plan of care. Patient has been instructed to contact the clinic with any concerns before the next appointment. Dr. Weiner has reviewed this note and agrees with this plan of care. This note was dictated using voice recognition software and make contain errors or omissions. [facility] Disclaimer: The information contained in this section may have been updated after the patient was seen, as this information can be updated by other users. Medical History Active labor ADHD Hemorrhoids History of drug abuse History of intravenous drug abuse Major depressive disorder Menorrhagia Migraine No care in current with fetus of unknown gestational age Tobacco user Surgical History Hx of appendectomy Hx of knee surgery Family History Other Cancer Diabetes Hypertension Stroke Substance abuse Social History Smoking Status: Current every day smoker tobacco type: cigarettes alcohol intake: current substance use type: former substance user, marijuana, crack/cocaine, heroin, amphetamines, IV drugs and methamphetamine current occupational status: other Travel in the last 8 weeks: None do you feel safe at home: Yes victim of physical abuse: No victim of emotional abuse: No victim of sexual abuse: No
== END ==
LOC: SC.PAIN 10:59
PROVIDERS: PCP Internal Medicine; Visit Provider Nurse Practitioner Family
DX: M54.50 Low back pain, unspecified (principal); M46.1 Sacroiliitis, not elsewhere classified; M79.605 Pain in left leg; M25.562 Pain in left knee
CPT/HCPCS: 99212; G0463

== ENCOUNTER 2023-06-15 13:19 | Outpatient (POV) | payer OTHER, SELFPAY ==
[2023-06-15 15:12] VITALS: BP 130/76; PULSE 85; RESP 18; O2SAT 98; BMI 27.4
--- NOTE | 2023-06-15 15:23 | A.OFFVIS_ITS ---
[facility] Pain Management SOAP Note Subjective:: Patient is a pleasant 37-year-old female who presents today for 1 month follow- up. We are currently treating the patient for bilateral sacroiliitis, chronic low back pain. Today she rates her pain a 4 out of 10. Patient denies any new trauma or injury. She does state that she has started physical therapy however as of right now she has not noticed significant relief. She states she continues to have the chronic pain including knee pain and runs down her legs primarily on the left side. Patient has tried and failed conservative therapy such as oral medication, heat and ice, topicals, at home stretching and exercise. Patient does state that she has her MRI scheduled on the of this month. Her Luis Eduardo has been reviewed and is appropriate. Review of Systems: General: No recent weight changes, no fever, no sleep disturbances Respiratory: No cough, no shortness of air, no recurring pulmonary infections Cardiovascular/peripheral vascular: No chest pain, no palpitations, no edema, no shortness of breath Gastrointestinal: No new onset incontinence, normal bowel movements reported Genitourinary: No new onset incontinence Musculoskeletal: Low back pain, bilateral leg pain, knee pain Psychiatric: [Normal mood/affect] Neurological: [Denies weakness in extremities], [denies balance issues] Objective:: Physical Exam: General: Alert and oriented x3, no acute distress, pleasant and cooperative Lungs: Respirations even and unlabored, symmetrical chest expansion Eyes: PERRL Musculoskeletal: Flexion and extension of lumbar [spine] somewhat guarded secondary to pain, [antalgic gait noted] Neurological: Speech clear, no gross sensory deficit Assessment:: Chronic pain syndrome, chronic low back pain with lumbar radiculopathy symptoms, bilateral sacroiliitis, knee pain Plan:: Patient continues to experience significant pain in multiple areas. I have discussed with the patient that we will follow-up after her MRI to review over the findings. Patient has been counseled that she may be a beneficial candidate of a intrathecal pain pump or spinal cord stimulator trial in the future. Risk and benefits and educational handouts were given to the patient at today's visit. Patient would like to proceed forward with this plan of care. Patient will be ordered a psychological evaluation and if she is deemed an appropriate candidate we will proceed forward with 1 of these trials at a later date. Patient's pain pump trial would be done with bupivacaine due to her history of drug abuse. Patient will return to clinic in 1 month for reevaluation of symptoms and plan of care. Patient has been instructed to contact the clinic with any concerns before the next appointment. Dr. Weiner has reviewed this note and agrees with this plan of care. This note was dictated using voice recognition software and make contain errors or omissions. [facility] Disclaimer: The information contained in this section may have been updated after the patient was seen, as this information can be updated by other users. Medical History Active labor ADHD Hemorrhoids History of drug abuse History of intravenous drug abuse Major depressive disorder Menorrhagia Migraine No care in current with fetus of unknown gestational age Tobacco user Surgical History Hx of appendectomy Hx of knee surgery Family History Other Cancer Diabetes Hypertension Stroke Substance abuse Social History Smoking Status: Current every day smoker tobacco type: cigarettes alcohol intake: current substance use type: former substance user, marijuana, crack/cocaine, heroin, amphetamines, IV drugs and methamphetamine current occupational status: other Travel in the last 8 weeks: None do you feel safe at home: Yes victim of physical abuse: No victim of emotional abuse: No victim of sexual abuse: No
== END 2023-06-15 23:59 ==
LOC: SC.PAIN 13:19
PROVIDERS: PCP Internal Medicine; Visit Provider Nurse Practitioner Family
DX: G89.4 Chronic pain syndrome (principal); M54.16 Radiculopathy, lumbar region; M54.50 Low back pain, unspecified; M46.1 Sacroiliitis, not elsewhere classified; M25.562 Pain in left knee
CPT/HCPCS: 99212; G0463

== ENCOUNTER 2023-06-23 15:08 | Outpatient (CLI) | payer OTHER, SELFPAY ==
--- NOTE | 2023-06-23 15:12 | MR_ITS ---
FINAL REPORT CLINICAL HISTORY: LOW BACK PAIN. bilateral hip and leg pain FINDINGS: Multiplanar MR imaging of the lumbar spine was performed without contrast. On the sagittal T2-weighted images, disc degeneration is seen at several levels. There is mild leftward curvature. The vertebral alignment is normal. There is no evidence of fracture. No bony mass is identified. The conus is seen at approximately the L1 level and has an unremarkable appearance. T11-12: Unremarkable. T12-L1: Annular disc bulge. L1-2: There is an annular disc bulge without significant canal stenosis or neural foraminal narrowing. L2-3: There is an annular disc bulge without significant canal stenosis or neural foraminal narrowing. L3-4: There is an annular disc bulge without significant canal stenosis or neural foraminal narrowing. L4-5: Annular disc bulge with small central disc protrusion. There is moderate bilateral neuroforaminal narrowing. L5-S1: Annular disc bulge with mild right and moderate left neuroforaminal narrowing. IMPRESSION: Multilevel degenerative disc disease with moderate neuroforaminal narrowing at L4-5 and L5-S1. Reviewed, Interpreted and Dictated by Lc Sommer III, MD Transcribed by Bridgett Almonte Authenticated and [facility]
== END 2023-06-23 23:59 ==
LOC: RAD 15:08
PROVIDERS: PCP Internal Medicine; Visit Provider Nurse Practitioner Family
DX: M54.50 Low back pain, unspecified (principal)
CPT/HCPCS: 72148; 76376

== ENCOUNTER 2023-06-29 10:22 | Outpatient (POV) | payer OTHER, SELFPAY ==
--- NOTE | 2023-06-29 10:53 | EXP.PAIN.SOA ---
[facility] Pain Management SOAP Note Subjective:: Patient is a pleasant 37-year-old female who presents today for follow-up of her lumbar MRI. Today she rates her pain an 8 out of 10. Patient denies any new trauma or injury. She does state that she is continuing to have significant pain throughout her low back and down into her legs. Patient states that it is affecting her sleeping in every aspect of her life. Patient is requesting ibuprofen or Tylenol 3. She does state from our last visit that she was gotten an appointment on the for the psychological evaluation. She states that she still would like to proceed forward with this option however she is unsure if she wants to do the spinal cord stimulator or the pump trial. Her Luis Eduardo has been reviewed and is appropriate. Review of Systems: General: No recent weight changes, no fever, no sleep disturbances Respiratory: No cough, no shortness of air, no recurring pulmonary infections Cardiovascular/peripheral vascular: No chest pain, no palpitations, no edema, no shortness of breath Gastrointestinal: No new onset incontinence, normal bowel movements reported Genitourinary: No new onset incontinence Musculoskeletal: Low back pain, bilateral leg pain Psychiatric: [Normal mood/affect] Neurological: [Denies weakness in extremities], [denies balance issues] Objective:: Physical Exam: General: Alert and oriented x3, no acute distress, pleasant and cooperative Lungs: Respirations even and unlabored, symmetrical chest expansion Eyes: PERRL Musculoskeletal: Flexion and extension of lumbar [spine] somewhat guarded secondary to pain, [antalgic gait noted] Neurological: Speech clear, no gross sensory deficit Assessment:: Chronic pain syndrome, degenerative disc disease of lumbar spine with lumbar radiculopathy symptoms, bilateral sacroiliitis, knee pain Plan:: I did review over the findings of her MRI. I have also reviewed over risk and benefits of the spinal cord stimulator in the pump. We will follow-up with the patient after her evaluation regarding these options. I will send in a prescription of ibuprofen 800 mg 3 times daily and provide a 1 month supply of this medication. Patient will return to clinic in 1 month for reevaluation of symptoms and plan of care. Patient has been instructed to contact the clinic with any concerns before the next appointment. Dr. Weiner has reviewed this note and agrees with this plan of care. This note was dictated using voice recognition software and make contain errors or omissions. [facility] Disclaimer: The information contained in this section may have been updated after the patient was seen, as this information can be updated by other users. Medical History Active labor ADHD Hemorrhoids History of drug abuse History of intravenous drug abuse Major depressive disorder Menorrhagia Migraine No care in current with fetus of unknown gestational age Tobacco user Surgical History (Reviewed 05/23/23 @ 14:35 by Mariposa Henley [facility]) Hx of appendectomy Hx of knee surgery Family History Other Cancer Diabetes Hypertension Stroke Substance abuse Social History (Reviewed 05/23/23 @ 14:35 by Mariposa Henley [facility]) Smoking Status: Current every day smoker tobacco type: cigarettes alcohol intake: current substance use type: former substance user, marijuana, crack/cocaine, heroin, amphetamines, IV drugs and methamphetamine current occupational status: other Travel in the last 8 weeks: None do you feel safe at home: Yes victim of physical abuse: No victim of emotional abuse: No victim of sexual abuse: No
[2023-06-29 13:29] VITALS: BP 143/105; PULSE 71; RESP 18; O2SAT 99; BMI 27.1
== END 2023-06-29 23:59 | disposition home or self-care (01) ==
PROVIDERS: PCP Internal Medicine; Visit Provider Nurse Practitioner Family
DX: G89.4 Chronic pain syndrome (principal); M51.16 Intervertebral disc disorders with radiculopathy, lumbar region; M46.1 Sacroiliitis, not elsewhere classified; M25.569 Pain in unspecified knee
CPT/HCPCS: 99212; G0463

== ENCOUNTER 2023-07-27 10:15 | Outpatient (POV) | payer OTHER, SELFPAY ==
[2023-07-27 10:21] VITALS: BP 141/85; PULSE 90; RESP 16; O2SAT 98; BMI 27.4
--- NOTE | 2023-07-27 10:35 | A.OFFVIS_ITS ---
[facility] Pain Management SOAP Note Subjective:: Patient is a pleasant 38-year-old female who presents today for follow-up of her psychological evaluation. Today she rates her pain a 9 out of 10. Patient states that she did roll her ankle on Tuesday and so is having a little bit more pain regarding this area. Patient does also states she continues to have her chronic pain in her low back. She is prescribed gabapentin from an outside provider however she states that she does not like taking this due to the side effects and feeling funny. Her Luis Eduardo has been reviewed and is appropriate. Review of Systems: General: No recent weight changes, no fever, no sleep disturbances Respiratory: No cough, no shortness of air, no recurring pulmonary infections Cardiovascular/peripheral vascular: No chest pain, no palpitations, no edema, no shortness of breath Gastrointestinal: No new onset incontinence, normal bowel movements reported Genitourinary: No new onset incontinence Musculoskeletal: Low back pain, Psychiatric: [Normal mood/affect] Neurological: [Denies weakness in extremities], [denies balance issues] Objective:: Physical Exam: General: Alert and oriented x3, no acute distress, pleasant and cooperative Lungs: Respirations even and unlabored, symmetrical chest expansion Eyes: PERRL Musculoskeletal: Flexion and extension of lumbar [spine] somewhat guarded secondary to pain, [antalgic gait noted] Neurological: Speech clear, no gross sensory deficit Assessment:: Degenerative disc disease of lumbar spine with lumbar radiculopathy symptoms, knee pain, bilateral sacroiliitis Plan:: Patient continues to experience significant pain throughout multiple areas. I did review over her psychological evaluation and explained that currently she is not an appropriate candidate for this device. I have discussed with the patient that it may be beneficial to follow-up with her provider who does prescribe her depression and anxiety medications in order to possibly do some adjustment. Patient dad state that they had discussed this in the past and that she is still not made any changes. I have counseled the patient that I will look at her medications and see about adding duloxetine 30 mg daily. Patient has been counseled to discontinue her Lexapro for starting this medication. I will also order the patient called explained. Patient will return to clinic in 1 month for reevaluation of symptoms and plan of care. Patient did ask about possible methadone use and I have counseled the patient that we do not do anything regarding here in our clinic and that would be done a t a different provider. Patient acknowledges understanding. Patient has been instructed to contact the clinic with any concerns before the next appointment. Dr. Weiner has reviewed this note and agrees with this plan of care. This note was dictated using voice recognition software and make contain errors or omissions. [facility] Disclaimer: The information contained in this section may have been updated after the patient was seen, as this information can be updated by other users. Medical History Active labor ADHD Hemorrhoids History of drug abuse History of intravenous drug abuse Major depressive disorder Menorrhagia Migraine No care in current with fetus of unknown gestational age Tobacco user Surgical History Hx of appendectomy Hx of knee surgery Family History Other Cancer Diabetes Hypertension Stroke Substance abuse Social History (Reviewed 05/23/23 @ 14:35 by Mariposa Henley [facility]) Smoking Status: Current every day smoker tobacco type: cigarettes alcohol intake: current substance use type: former substance user, marijuana, crack/cocaine, heroin, amphetamines, IV drugs and methamphetamine current occupational status: other Travel in the last 8 weeks: None do you feel safe at home: Yes victim of physical abuse: No victim of emotional abuse: No victim of sexual abuse: No
== END 2023-07-27 23:59 | disposition home or self-care (01) ==
PROVIDERS: PCP Internal Medicine; Visit Provider Nurse Practitioner Family
DX: M51.16 Intervertebral disc disorders with radiculopathy, lumbar region (principal); M25.569 Pain in unspecified knee; M46.1 Sacroiliitis, not elsewhere classified
CPT/HCPCS: 99212; G0463

== ENCOUNTER 2023-08-03 17:00 | Outpatient (RCR) | payer OTHER, SELFPAY ==
--- NOTE | 2023-06-02 12:29 | HMH.PTOPEV ---
PT Outpatient Evaluation Rehab PT Outpatient Evaluation Start: 06/01/23 14:05 Freq: Status: Active Protocol: Document 06/01/23 14:05 KWABENA (Rec: 06/01/23 16:24 KWABENA [id number]) E-signed By Layla Turner, PT Outpatient Therapy Subjective History Subjective History This is an initial evaluation for 37 y/o who presents with c /o LBP that extends into her hips and knees. Pt with reports of B ankle instability . LBP began in high school after a fall from a high beam. Pt reports recent in [facility] but denies an increase in chief complaint after . Pt reports she recieved injections in her SIJ 05/03 which she reports worsened her pain once they wore off . Pt reports she has tried TENs unit in the past which may have helped some. Imaging: LB 03/23/23 Xray. No Acute process . Just approved for MRI but not yet scheduled PMH per last MD office visit: Active labor, ADHD, Hemorrhoids, History of intravenous drug abuse, Major depressive disorder, Migraine, Tobacco user. New diagnosis of cancer in past 12 No months? Chief Complaint Pain,Spasms Symptom Type Ache,Throb,Dull,Numbness Symptoms Relieved By Prescription Meds Symptoms Aggravated By Physical Activity,Walking Current Functional Limitations Lifting,Sleeping,Standing, Sitting,Recreation Activity, Walking Symptom Description Constant but Variable Level of pain today (0-10) 8 Pain scale - at its best (0-10) 0 Pain scale - at its worst (0-10) 10 Lumbopelvic Eval Palapation tenderness bilateral thoracic spinal tenderness Yes lumbar spinal tenderness Yes paraspinal tenderness Yes buttock tenderness Yes Lumbar/Sacral Palpation Findings Tenderness,Muscle Guarding Lumbar/Sacral Palpation Overall Comment 3/4 TTP multiple sites in lumbar and buttock area. Range of Motion Lumbar Spine Active Flexion Range of WNL but painful Motion (degrees) Lumbar Spine Active Extension Range of 15 and painful Motion (degrees) Left Lumbar Spine Lateral Flexion Active WNL but painful Range of Motion (degrees) Right Lumbar Spine Lateral Flexion WNL but painful Active Range of Motion (degrees) Lumbar Spine ROM Limitations Pain Manual Muscle Test Bilateral Knee Extension Strength Grade 4- Good- Knee Flexion Strength Grade 4- Good- Hip Flexion Strength Grade 3+ Fair+ Hip Abduction Strength Grade 4- Good- Hip Adduction Strength Grade 3+ Fair+ Ankle Dorsiflexion Strength Grade 4- Good- Altered Sensation LE Dermatome Level L3,L4,L5 Comment L3 Diminished on L Special Tests Hip Piriformis Test Positive Left,Positive Right Sciatic Nerve Tension Test Positive Left,Positive Right Hip 90-90 Straight Leg Raise Test Positive Left,Positive Right Sacroiliac Joint Compression Test Positive Left,Positive Right Sacroiliac Joint Distraction Test Positive Left,Positive Right Oswestry Index Section 1 Pain Intensity The pain comes and goes and is severe Section 2 Personal Care (Washing,Dresing) my way of washing or dressing even though it causes some pain Section 3 Lifting I can lift heavy weights, but it gives me extra pain Section 4 Walking I cannot walk more than one mile wihtout increasing pain Section 5 Sitting Pain prevents me from sitting for more than one hour Section 6 Standing I cannot stand more than 1 hour without increasing pain Section 7 Sleeping Because of my pain, my normal night's sleep is less than 6 hours sleep Section 8 Social Life Pain has no significant effect on my social life apart from limiting Section 9 Traveling I get some pain when traveling , but none of my usual forms of travel m Section 10 Changing Degreee of Pain My pain fluctuates, but overall is definitely getting better Score and Risk Level Oswestry Sc 18 Oswestry Risk Level Moderate Disability Outpatient Therapy Assessment Impairments Problems/Impairmments Palpation Tenderness,Impaired Range of Motion,Impaired Strength,Impaired Endurance, Impaired Walking,Impaired Standing,Impaired Lifting, Impaired Bending,Impaired Recreational Activities, Subjective C/O Pain Prognosis Rehab Potential Good Comment Pt displays with chronic LBP that she states has been ongoing since high school after a fall. Pt displays multiple TTP points in LB and buttock. PT unable to assess segmental mobility d/t pain with superficial touch to SPs. Pt with impaired BLE strength . Pt with painful end range lumbar extension. Pt with some complaints of shooting pain during slump test but findings inconsistent. Pt would benefit from skilled PT to address chronic pain and deficits. Clinical Impression Consistent with Diagnosis Yes Short Term Goals Number of Weeks 3 Increase Strength Yes: 4/5 BLE Improve Oswestry Score Yes: Decrease score to mild disability Decrease Subjective C/O Pain Yes: 24 hour pain average 06/11 Patient to be Ind w/ HEP Yes Fpc Goals Number of Weeks 6 Decreased Palpation Tenderness Yes: 0-1/4 TTP to demo decreased irritability Increase Range of Motion Yes: WNL Pain free Increase Strength Yes: 5/5 BLE Improve Oswestry Score Yes: Score reflecting no disability Decrease Subjective C/O Pain Yes: 24 hour pain average to Patient to be Ind w/ Advanced HEP Yes Outpatient Therapy Plan of Care Treatment Plan May Include Therapeutic Exercise Including Home Yes Exercise Program Manual Therapy Techniques Yes Neuromuscular Re-education Yes Therapeutic Activities to Return to Yes Previous Functional/Work Level Gait Training Yes ADL/Self Care Education Yes Dry Needling Yes Thermal Modalities Yes Electrical Stimulation Yes Ultrasound/Phonophoresis Yes Iontophoresis Yes Massage Yes Eval/Re-Eval Yes Aquatic Therapy Yes Frequency Times per week 1-2 times Duration Number of Weeks 6-8 Addendums This patient is a candidate for social No or vocational rehab? Patient/Guardian verbally acknowledges Yes understanding of treatment program and consents to further treatment? Patient/Guardian verbally acknowledges Yes understanding of diagnosis, prognosis and goals for treatment? Eval Complexity PT Charges 66845 - High Complexity Shoulder/Elbow Eval Shoulder Objective Measurements Elbow Objective Measurements PHYSICIAN CERTIFICATION: I certify the specified therapy services for Luciana Childs are required, authorized, and reviewed every 30 days.
--- NOTE | 2023-08-04 10:26 | HMH.RHREAS ---
Rehab Reassessment Rehab OP Re-assessment Start: 06/01/23 14:05 Freq: Status: Active Protocol: Document 08/03/23 17:50 MAGDI (Rec: 08/04/23 10:26 MAGDI [id number]) E-signed By Denia Marshall PT Oswestry Index Section 1 Pain Intensity The pain is moderate and does not vary much Section 2 Personal Care (Washing,Dresing) my way of washing or dressing even though it causes some pain Section 3 Lifting I can lift heavy weights, but it gives me extra pain Section 4 Walking I cannot walk more than one mile wihtout increasing pain Section 5 Sitting I can sit in my favorite chair for as long as I like Section 6 Standing I cannot stand more than 1 hour without increasing pain Section 7 Sleeping Because of my pain, my normal night's sleep is less than 6 hours sleep Section 8 Social Life Pain has no significant effect on my social life apart from limiting Section 9 Traveling I get extra pain while traveling, but it does not compel me to seek al Section 10 Changing Degreee of Pain My pain is neither getting better or worse Score and Risk Level Oswestry Sc 19 Oswestry Risk Level Moderate Disability Rehab Re-assessment Subjective Subjective Pt reports she feels 5% improved since starting PT. Pt states continued low back pain at worst as 8-9/10 on VAS with prolonged activity throughout the day. Pt reports 6/10 average daily pain. Pt also states My sciatica on both sides flares up at times too. Pt states she takes prescribed Ibuprofen but states this does not affect her pain severity. Pt reports non-compliance with HEP. Pt reports she feels better after therapy sessions and would like to continue. Pt reports she returns to pain management on 08/31/23. Objective Objective Notes Gross TTP of the entire lumbar region Lumbar AROM: flex 110, ext 20, RLF 30 LLF 25 (p! at end ranges) BLE MMT: hip flex 3+/5, knee flex/ext /5, hip abd/add 4/5 ( all limited by pain) Assessment Assessment Notes Pt has attended 6 PT treatment sessions since her initial evaluation on 06/01/23. Pt demonstrated improved lumbar AROM this date; however, demonstrated no change in LE strength limited by pain or ADÁN score this date compared to the initial evaluation. Pt also continues to report severe low back pain with prolonged activity. Pt was educated on importance of compliance with PT POC and HEP to assist with pain severity and long-term progress. Pt was provided with updated written /illustrated instructions of HEP and educated on suggested frequency of performance. Overall, the pt would continue to benefit from skilled PT to further improve pain, hip/ core strength and functional activity tolerance to improve overall QOL. If no improvements in subjective report of pain in 1-2 weeks, then refer back to MD for further treatment options. Patient goals met ST/4 Goals Not Met p! severity, LE MMT, HEP compliance, ADÁN score Revised Goals n/a Plan Plan Continue initial POC. If no progress in 1-2 weeks, discharge and refer patient back to MD for further treatment options. Frequency of Therapy 2x/week Duration of therapy 2-4 more weeks Time and Billing Re-Eval Time 15 Re-Eval Billing Units 1 PHYSICIAN CERTIFICATION: I certify the specified therapy services for Luciana Childs are required, authorized, and reviewed every 30 days.
== END 2023-08-03 18:00 | disposition home or self-care (01) ==
LOC: PT 17:00
PROVIDERS: PCP Internal Medicine; Visit Provider Nurse Practitioner Family
DX: M54.50 Low back pain, unspecified (principal); M79.604 Pain in right leg; M79.605 Pain in left leg
CPT/HCPCS: 97010; 97014; 97035; 97110; 97140; 97163; 97164; 97530; G0283